=== PATIENT | male | born 1955 | race Caucasian/White ===

== ENCOUNTER 2018-03-13 16:11 | Emergency (ER) | payer BC ==
--- NOTE | 2018-03-13 16:25 | EDM.PDOC ---
ED HPI GENERAL MEDICAL PROBLEM - General Stated Complaint: LOWER BACK PAIN Time Seen by Provider: 03/13/18 16:11 Source of Information: Reports: Patient, Family History Limitations: Reports: No Limitations - History of Present Illness INITIAL COMMENTS - FREE TEXT/NARRATIVE: 63 y.o.w.m with a h/o umbilical hernia, came to the ed due pain at his lower back, radiating to his right flank down to his groin and ant thigh. Pain is better in supine position, worse in upright position, no trauma, no bloody urine. No H/O kidney stone. No F/C no other acute medical issues. BP 196/81 Pulse 85 Pulse ox 96% RR 18 temp 36.8 Onset Date: 03/07/18 Onset Time: 06:00 Duration: Day(s):, Getting Worse, Intermittent Location: Reports: Back Quality: Reports: Ache, Burning, Dull, Pressure, Throbbing Severity: Mild Improves with: Reports: Rest Worsens with: Reports: Movement Context: Reports: Activity, Exercise Right Hip Pain Score (Numeric/FACES): 5 - Related Data Allergies Allergy/AdvReac Type Severity Reaction Status Date / Time No Known Allergies Allergy Verified 03/13/18 16:33 Home Meds: Home Meds Lutein 20 mg PO DAILY 03/13/18 [History] Multivitamin [Multivitamins] 1 tab PO DAILY 03/13/18 [History] Tamsulosin HCl [Flomax] 0.4 mg PO DAILY #4 cap.er.24h 03/13/18 [Rx] ED ROS GENERAL - Review of Systems Review Of Systems: See Below Constitutional: Reports: No Symptoms HEENT: Reports: No Symptoms Respiratory: Reports: No Symptoms Cardiovascular: Reports: No Symptoms Endocrine: Reports: No Symptoms GI/Abdominal: Reports: Other (umbilical hernia) : Reports: No Symptoms Musculoskeletal: Reports: Back Pain Skin: Reports: No Symptoms Neurological: Reports: No Symptoms Psychiatric: Reports: No Symptoms Hematologic/Lymphatic: Reports: No Symptoms Immunologic: Reports: No Symptoms ED EXAM,LOWER BACK PAIN/INJURY - Physical Exam Exam: See Below Exam Limited By: No Limitations General Appearance: Alert, WD/WN, Mild Distress, Obese Eye Exam: Bilateral Eye: Normal Inspection Ears: Normal External Exam Nose: Normal Inspection Throat/Mouth: Normal Inspection Head: Atraumatic, Normocephalic Neck: Normal Inspection, Supple, Non-Tender Respiratory/Chest: No Respiratory Distress, Lungs Clear, Normal Breath Sounds, No Accessory Muscle Use, Chest Non-Tender Cardiovascular: Normal Peripheral Pulses, Regular Rate, Rhythm, No Edema, No Gallop, No JVD, No Murmur, No Rub GI/Abdominal: Normal Bowel Sounds, Soft, Non-Tender, No Organomegaly, No Distention, No Abnormal Bruit, No Mass, Pelvis Stable (Male) Exam: Other (umbilical hernia) Rectal (Males) Exam: Deferred Back Exam: CVA Tenderness (R), Paraspinal Tenderness Extremities: Normal Inspection, Normal Range of Motion, Non-Tender, No Pedal Edema, Normal Capillary Refill Neurological: Alert, Normal Mood/Affect, Normal Dorsiflexion, CN II-XII Intact, Normal Plantar Flexion, Normal Gait, No Motor/Sensory Deficits, Oriented x 3 Psychiatric: Normal Affect, Normal Mood Skin Exam: Warm, Dry, Intact, Normal Color, No Rash Lymphatic: No Adenopathy Course - Vital Signs Text/Narrative:: 63 y.o.w.m with a h/o umbilical hernia, came to the ed due pain at his lower back, radiating to his right flank down to his groin and ant thigh. Pain is better in supine position, worse in upright position, no trauma, no bloody urine. No H/O kidney stone. No F/C no other acute medical issues. BP 196/81 Pulse 85 Pulse ox 96% RR 18 temp 36.8 PE WNWD W M with subacute back/flank,groin and ant right thigh pain, better in supine position. H/O Hiatal hernia. Neg straight leg rising test, bilat Imaging: Bilateral perinephritic stranding Labs: WBC nl, elevated HGB 18.6 and HCT 55.6 UA pos for microcytic hematuria. DDx: Passed kiney stone, L4/L5 disc protrusion Impression: Microcytic hematuria, perinephritic standing, back pain Tx: Ice, Flomax Reexam: Pt did well in the ed and di dnot request pain meds now. May have passed a kidney stone Plan: D/C with instructions Last Recorded V/S: Last Vital Signs Temp 36.3 C 03/13/18 16:11 Pulse 77 03/13/18 18:33 Resp 18 03/13/18 18:33 BP 159/99 H 03/13/18 18:43 Pulse Ox 98 03/13/18 18:33 - Orders/Labs/Meds Orders: Active Orders 24 hr Category Date Time Status Abdomen Pelvis wo Cont [CT] Stat Exams 03/13/18 16:22 Taken UA W/MICROSCOPIC [URIN] Stat Lab 03/13/18 17:50 Ordered Labs: Laboratory Tests 03/13/18 03/13/18 03/13/18 Range/Units 17:40 17:40 17:50 WBC 10.3 (4.5-12.0) X10-3/uL RBC 6.60 H (4.30-5.75) x10(6)uL Hgb 18.6 H (11.5-15.5) g/dL Hct 55.7 H (30.0-51.3) % MCV 84.4 (80-96) fL MCH 28.2 (27.7-33.6) pg MCHC 33.4 (32.2-35.4) g/dL RDW 14.3 (11.5-15.5) % Plt Count 159 (125-369) X10(3)uL MPV 10.0 (7.4-10.4) fL Neut % (Auto) 77.1 (46-82) % Lymph % (Auto) 14.2 (13-37) % Coke % (Auto) 6.9 (4-12) % Eos % (Auto) 0 L (1.0-5.0) % Baso % (Auto) 1 (0-2) % Neut # (Auto) 8.0 (1.6-8.3) # Lymph # (Auto) 1.5 (0.6-5.0) # Coke # (Auto) 0.7 (0.0-1.3) # Eos # (Auto) 0.0 (0.0-0.8) # Baso # (Auto) 0.1 (0.0-0.2) # Sodium 140 (135-145) mmol/L Potassium 4.1 (3.5-5.3) mmol/L Chloride 103 (100-110) mmol/L Carbon Dioxide 28 (21-32) mmol/L BUN 17 (7-18) mg/dL Creatinine 1.0 (0.70-1.30) mg/dL Est Cr Clr Drug Dosing 82.62 mL/min Estimated GFR (MDRD) > 60 (>60) BUN/Creatinine Ratio 17.0 (9-20) Glucose 121 H (80-116) mg/dL Calcium 9.6 (8.6-10.2) mg/dL Urine Color Yellow (YELLOW) Urine Appearance Clear (CLEAR) Urine pH 5.0 (5.0-6.5) Ur Specific [place] 1.015 (1.010-1.025) Urine Protein Negative (NEGATIVE) mg/dL Urine Glucose (UA) Normal (NEGATIVE) mg/dL Urine Ketones Negative (NEGATIVE) mg/dL Urine Occult Blood Moderate H (NEGATIVE) Urine Nitrite Negative (NEGATIVE) Urine Bilirubin Negative (NEGATIVE) Urine Urobilinogen Normal (NEGATIVE) mg/dL Ur Leukocyte Esterase Negative (NEGATIVE) Urine RBC 5-10 (0) Urine WBC 0-5 (0) Ur Squamous Epith Cells Few H (NS,R,O) Urine Bacteria Few H (NS) Urine Mucus Few H (NS) Meds: Medications Discontinued Medications Generic Name Dose Route Start Last Admin Trade Name Cordell PRN Reason Stop Dose Admin Clonidine HCl 0.1 mg 03/13/18 18:34 03/13/18 18:43 Catapres PO 03/13/18 18:35 0.1 mg ONETIME ONE Administration Tamsulosin HCl 0.4 mg 03/13/18 18:30 03/13/18 18:40 Flomax PO 03/13/18 18:31 0.4 mg ONETIME ONE Administration Departure - Departure Time of Disposition: 18:32 Disposition: Home, Self-Care 01 Condition: Good Clinical Impression: Flank pain, Back pain Hematuria Qualifiers: Hematuria type: other microscopic Qualified Code(s): R31.29 - Other microscopic hematuria HTN (hypertension) Qualifiers: Hypertension type: essential hypertension Qualified Code(s): I10 - Essential ( primary) hypertension - Discharge Information Prescriptions: Tamsulosin HCl [Flomax] 0.4 mg PO DAILY #4 cap.er.24h Instructions: Acetaminophen; Oxycodone tablets, Back Pain, Adult, Flank Pain, Adult, Tamsulosin capsules, Clonidine tablets Referrals: Jalen Trivedi MD [Primary Care Provider] - Forms: ED Department Discharge Additional Instructions: Please take Flomax daily. Motrin for mod pain. Percocet for severe pain. Please get your urine analysis checked in 5 days, please f/u with your PMD, please come back to the ed if yours symptoms get worse acutely. - My Orders Last 24 Hours: My Active Orders 03/13/18 16:22 Abdomen Pelvis wo Cont [CT] Stat 03/13/18 17:50 UA W/MICROSCOPIC [URIN] Stat - Assessment/Plan Last 24 Hours: My Active Orders 03/13/18 16:22 Abdomen Pelvis wo Cont [CT] Stat 03/13/18 17:50 UA W/MICROSCOPIC [URIN] Stat
[2018-03-13] MEDS ORDERED: Tamsulosin 0.4 MG Cap.ER PO ONE (18:30)
[2018-03-13] MEDS ORDERED: cloNIDine 0.1 MG Tab PO ONE (18:34)
[2018-03-13] MEDS ORDERED: Acetaminophen/oxyCODONE 325-5 MG Tab PO ONE (18:36)
== END 2018-03-13 18:52 | disposition home or self-care (01) ==
LOC: FB.ED 16:11
DX: N15.9 Renal tubulo-interstitial disease, unspecified (principal); R31.29 Other microscopic hematuria; I10 Essential (primary) hypertension; Z79.899 Other long term (current) drug therapy
CPT/HCPCS: 36415; 74176; 80048; 81001; 85025; 99284; A9270

== ENCOUNTER 2018-03-15 13:14 | Emergency (ER) | payer BC ==
--- NOTE | 2018-03-15 13:55 | EDM.PDOC ---
ED HPI GENERAL MEDICAL PROBLEM - General Chief Complaint: Back Pain or Injury Stated Complaint: BACK AND LEG PAIN Time Seen by Provider: 03/15/18 13:15 Source of Information: Reports: Patient, Family, Old Records History Limitations: Reports: No Limitations - History of Present Illness INITIAL COMMENTS - FREE TEXT/NARRATIVE: Po returns to [facility] ED with ongoing R lower burning back pain that is unimproved with analgesics and rest. Sxs were vague and intermittent for about a month before acute onset of sxs 2 days ago. Pain radiates to the anteromedial aspect of the R thigh. Oxycodone has not controlled pain, currently relieved with recumbency. There are no voiding or bowel sxs. - Related Data Allergies Allergy/AdvReac Type Severity Reaction Status Date / Time No Known Allergies Allergy Verified 03/13/18 16:33 Home Meds: Home Meds Lutein 20 mg PO DAILY 03/13/18 [History] Multivitamin [Multivitamins] 1 tab PO DAILY 03/13/18 [History] Tamsulosin HCl [Flomax] 0.4 mg PO DAILY #4 cap.er.24h 03/13/18 [Rx] Past Medical History Gastrointestinal History: Reports: Other (See Below) Other Gastrointestinal History: Hernia - Past Surgical History HEENT Surgical History: Reports: Oral Surgery GI Surgical History: Reports: Appendectomy Social & Family History - Family History Family Medical History: Noncontributory - Tobacco Use Smoking Status *Q: Never Smoker - Caffeine Use Caffeine Use: Reports: Coffee - Recreational Drug Use Recreational Drug Use: No ED ROS GENERAL - Review of Systems Review Of Systems: ROS reveals no pertinent complaints other than HPI. ED EXAM,LOWER BACK PAIN/INJURY - Physical Exam Exam: See Below Exam Limited By: Physical Impairment General Appearance: Alert, WD/WN, Anxious, Mild Distress Head: Normocephalic Neck: Normal Inspection, Supple, Non-Tender, Full Range of Motion Respiratory/Chest: Lungs Clear, Chest Non-Tender Cardiovascular: Regular Rate, Rhythm GI/Abdominal: Normal Bowel Sounds, Soft, Non-Tender, No Organomegaly, No Distention, No Abnormal Bruit, No Mass (Male) Exam: No Hernia, Normal Inspection, Normal Prostate Rectal (Males) Exam: Normal Exam, Normal Rectal Tone, Prostate Normal Back Exam: Decreased Range of Motion, Paraspinal Tenderness (R side) Extremities: Normal Inspection, Normal Range of Motion, Non-Tender, No Pedal Edema Neurological: Alert, Normal Mood/Affect, Normal Dorsiflexion, CN II-XII Intact, Normal Gait, No Motor/Sensory Deficits, Oriented x 3 Psychiatric: Normal Affect, Normal Mood Skin Exam: Warm, Dry, Intact, Normal Color Lymphatic: No Adenopathy Course - Vital Signs Text/Narrative:: I reviewed the Abd-Pelvis CT wo contrast with Dr Travis, who determined the presence of lumbar spinal stenosis and possible HNP. I have suggested follow up with PCP and subsequent MRI of Lumbar spine and possible referral to a specialist once more diagnostic imaging is completed. Patient and family are in agreement. Departure - Departure Time of Disposition: 14:13 Disposition: Home, Self-Care 01 Condition: Fair Clinical Impression: Back pain Qualifiers: Back pain location: low back pain Chronicity: acute Back pain laterality: right Sciatica presence: without sciatica Qualified Code(s): M54.5 - Low back pain Spinal stenosis of lumbar region Qualifiers: Neurogenic claudication status: unspecified Qualified Code(s): M48.061 - Spinal stenosis, lumbar region without neurogenic claudication - Discharge Information Referrals: Jalen Trivedi MD [Primary Care Provider] - Forms: ED Department Discharge - Problem List & Annotations (1) Back pain SNOMED Code(s): 478603612 Code(s): M54.9 - DORSALGIA, UNSPECIFIED Status: Acute Current Visit: Yes Annotation/Comment:: Follow up with PCP today regarding pain management. Qualifiers: Back pain location: low back pain Chronicity: acute Back pain laterality : right Sciatica presence: without sciatica Qualified Code(s): M54.5 - Low back pain (2) Spinal stenosis of lumbar region SNOMED Code(s): 63716091 Code(s): M48.061 - SPINAL STENOSIS, LUMBAR REGION WITHOUT NEUROGENIC SYL Status: Acute Current Visit: Yes Annotation/Comment:: Needs additional diagnostic imaging (MRI) and possible referral. Qualifiers: Neurogenic claudication status: unspecified Qualified Code(s): M48.061 - Spinal stenosis, lumbar region without neurogenic claudication - Problem List Review Problem List Initiated/Reviewed/Updated: Yes - Assessment/Plan Plan: Follow up with PCP today.
== END 2018-03-15 14:34 | disposition home or self-care (01) ==
LOC: FB.ED 13:14
DX: M48.061 Spinal stenosis, lumbar region without neurogenic claudication (principal); Z79.899 Other long term (current) drug therapy
CPT/HCPCS: 99282

== ENCOUNTER → 2022-09-22 | Day surgery (SDC) | payer MEDICARE, BC ==
[~2022-09-22] MED LIST: Lactated Ringers 1,000 ML IV SCH; Propofol 200 MG/20 ML SDV IV ONE; Sodium Chloride 0.9% 10 ML Syringe FLUSH PRN
== END ==
LOC: FB.SDS 07:03
PROVIDERS: ATTEND Surgery
DX: Z12.11 Encounter for screening for malignant neoplasm of colon (principal); K63.5 Polyp of colon; I10 Essential (primary) hypertension; K42.0 Umbilical hernia with obstruction, without gangrene; Z80.0 Family history of malignant neoplasm of digestive organs; Z79.899 Other long term (current) drug therapy
CPT/HCPCS: 00812; 45385; 88305; J2704; J7120

== ENCOUNTER 2025-04-23 06:13 | Day surgery (SDC) | payer MEDICARE, BC ==
[2025-04-23] MEDS ORDERED: Lidocaine 1% PF 2 ML SDV INJECT ONE (06:14)
[2025-04-23] MEDS ORDERED: Midazolam 1 MG/ML 2 ML SDV IV ONE (06:14)
[2025-04-23] MEDS ORDERED: fentaNYL 100 MCG/2 ML SDV IV ONE (06:14)
[2025-04-23] MEDS ORDERED: Ondansetron 4 MG/2 ML SDV IVPUSH ONE (06:14)
[2025-04-23] MEDS ORDERED: Lactated Ringers 1,000 ML IV ONE (06:14)
[2025-04-23] MEDS ORDERED: Ketorolac 30 MG/ML SDV IVPUSH ONE (06:14)
[2025-04-23] MEDS ORDERED: Propofol 200 MG/20 ML SDV IV ONE (06:14)
[2025-04-23] MEDS ORDERED: Sodium Chloride 0.9% 10 ML Syringe FLUSH PRN (06:15)
[2025-04-23] MEDS: Lactated Ringers 1,000 ML IV SCH (07:15)
[2025-04-23] MEDS: ceFAZolin 2 GM Vial IVPUSH ONE (07:16)
[2025-04-23] MEDS: Lidocaine 1% with EPINEPHrine 1:100,000 20 ML MDV INJECT ONE (08:03)
[2025-04-23] MEDS: Bupivacaine 0.5% 50 ML MDV INJECT ONE (08:03)
== END 2025-04-23 09:53 | disposition home or self-care (01) ==
LOC: FB.SDS 06:13
PROVIDERS: ATTEND Surgery
DX: K42.0 Umbilical hernia with obstruction, without gangrene (principal); I10 Essential (primary) hypertension; E11.9 Type 2 diabetes mellitus without complications; E66.9 Obesity, unspecified; Z68.34 Body mass index [BMI] 34.0-34.9, adult; Z79.899 Other long term (current) drug therapy
CPT/HCPCS: 00790; 49592; J0665; J0690; J1885; J2003; J2004; J2250; J2405; J2704; J3010; J7120; 88302